=== PATIENT | female | born 2000 | race Two or more races ===

== ENCOUNTER 2025-03-12 16:23 | Emergency (ER) | payer MEDICAID, SELFPAY ==
[2025-03-12 16:24] VITALS: BMI 24.2
[2025-03-12 16:33] VITALS: BP 134/93; PULSE 108; RESP 18; TEMP 37.1; O2SAT 96
--- NOTE | 2025-03-12 16:35 | XR_ITS ---
Examination: PA lateral chest 2 views TECHNIQUE: Upright PA and lateral chest 2 views Date and time: March 12, 2025 1808 hours Comparison April 19, 2024 INDICATIONS: Coughing fever today. FINDINGS: Significant fairly diffuse left lung pneumonia Normal heart size Right lung clear IMPRESSION: Significant fairly diffuse left lung pneumonia
--- NOTE | 2025-03-12 16:35 | EDNOTE_ITS ---
Upper Respiratory Inf. RME/HPI General Chief Complaint: Flu Like Symptoms Stated Complaint: COUGH/DIFF BREATHING X 1 WEEK Time Seen by Provider: 03/12/25 16:32 Source: patient Arrival date/time: 03/12/25 16:23 24-year-old female with no known medical history presents to the emergency room with a chief complaint of coughing, fever, phlegm and difficulty breathing x 1 week Mode of arrival: ambulatory Limitations: no limitations Related Data Home Medications ?Medication ?Instructions ?Recorded ?Confirmed hydrocodone 5 mg-acetaminophen 325 1 tab PO Q6H mg tablet metronidazole 500 mg tablet 500 mg PO BID 11/13/19 (Flagyl) Previous Rx's ?Medication ?Instructions ?Recorded cyclobenzaprine 10 mg tablet 10 mg PO TID PRN muscle s pasm #20 04/20/24 tabs naproxen 500 mg tablet 500 mg PO BID PRN pain #30 t abs 04/20/24 albuterol sulfate 90 mcg/actuation 2 puff inhalation Q 6H PRN 03/12/25 aerosol inhaler (Ventolin HFA) shortness of breath or wheezing #6.7 grams amoxicillin 875 mg-potassium 1 tab PO BID 7 days #14 t abs 03/12/25 clavulanate 125 mg tablet Allergies Allergy/AdvReac Type Severity Reaction Status Date / Time No Known Allergies Allergy Verified 03/12/25 16:26 Review of Systems Review of Systems Systems Reviewed: All systems reviewed, normal except as documented Constitutional Constitutional: Reports system reviewed and no additional complaints, except as documented, Denies fatigue, Denies fever(s), Denies headache(s) and Denies weakness Eyes Eyes: Reports system reviewed and no additional complaints, except as documented, Denies blurry vision and Denies change in vision ENT Ears, Nose, Mouth, and Throat: Reports system reviewed and no additional complaints, except as documented, Denies otalgia, Denies headache(s), Denies nasal congestion, Denies throat swelling and Denies vertigo Cardiovascular Cardiovascular: Reports system reviewed and no additional complaints, except as documented, Denies chest pain, Reports dyspnea and Denies dyspnea on exertion Respiratory Respiratory: Reports system reviewed and no additional complaints, except as documented, Reports chest congestion, Reports cough, Reports dyspnea, Denies dyspnea on exertion and Reports wheezing Gastrointestinal Gastrointestinal: Reports system reviewed and no additional complaints, except as documented, Denies abdominal pain, Denies cramping, Denies nausea and Denies vomiting Genitourinary Genitourinary: Reports system reviewed and no additional complaints, except as documented Musculoskeletal Musculoskeletal: Reports system reviewed and no additional complaints, except as documented and Denies back pain Integumentary/Breasts Skin/Breast: Reports system reviewed and no additional complaints, except as documented and Denies wounds Neurologic Neurologic: Reports system reviewed and no additional complaints, except as documented, Denies confusion, Denies headache(s), Denies lack of coordination, Denies vertigo and Denies weakness Psychiatric Psychiatric: Reports system reviewed and no additional complaints, except as documented, Denies anxiety, Denies confusion, Denies depression, Denies paranoia, Denies suicidal ideation and Denies tactile hallucinations Endocrine Endocrine: Reports system reviewed and no additional complaints, except as documented and Denies fatigue Hematologic/Lymphatic Hematologic/Lymphatic: Reports system reviewed and no additional complaints, except as documented and Denies lymphadenopathy Allergic/Immunologic Allergic/Immunologic: Reports system reviewed and no additional complaints, except as documented, Denies throat swelling, Denies urticaria and Reports wheezing Past Medical History Past Medical History CARDIAC: Negative Congestive Heart Failure RESPIRATORY: Negative Chronic Obstructive Pulmonary Disease (COPD) GENITOURINARY: Negative Renal Disease ENDOCRINE: Negative Diabetes Mellitus Type 1 or Diabetes Mellitus Type 2 Family History FAMILY HISTORY: Positive Family Cardiac Disorders Social History SMOKING STATUS: Never smoker ED Exam General Limitations: Present no limitations General appearance: Present alert and in no apparent distress Head Head exam: Present atraumatic Eye Eye exam: Present normal appearance, PERRL and EOMI ENT ENT exam: Present normal exam, normal oropharynx and mucous membranes moist Neck Neck exam: Present normal inspection, full ROM and trachea midline Chest Chest inspection: Present normal inspection and symmetric chest wall rise Respiratory Respiratory exam: Present normal lung sounds bilaterally, respiratory distress and wheezes; Absent stridor, accessory muscle use or prolonged expiratory phase Expanded Respiratory Exam Location: Right: wheezes and Lower: wheezes Cardiovascular Cardiovascular exam: Present regular rate, normal rhythm, tachycardia and normal heart sounds Abdominal Exam Abdominal exam: Present soft and normal bowel sounds; Absent distention, tenderness, guarding, rebound or rigidity Extremities Exam Extremities exam: Present normal inspection and full ROM Back Exam Back exam: Present normal inspection and full ROM Neurological Exam Neurological exam: Present alert, oriented X3 and CN II-XII intact Psychiatric Psychiatric exam: Present normal affect and normal mood Skin Skin exam: Present warm, dry, intact and normal color Course Quality Measures none Orders Category Date Time Status Bedside COVID-19 Antigen Test NOW Care 03/12/25 16:35 Completed Bedside Influenza A&B Antigen Test NOW Care 03/12/25 16:35 Completed XR chest 2V Stat Exams 03/12/25 16:35 Completed Albuterol/Ipratr Rt Monica [Duoneb Rt Monica] Med 03/12/25 16:35 Discontinued 3 ml INH X1 ONE Albuterol/Ipratr Rt Monica [Duoneb Rt Monica] Med 03/12/25 17:46 Discontinued 3 ml INH X1 ONE Dexamethasone Inj [Decadron Inj] Med 03/12/25 16:35 Discontinued 10 mg PO X1 ONE Vital Signs Vital signs: Vital Signs Temperature 98.7 F 03/12/25 16:33 Pulse Rate 108 H 03/12/25 16:33 Respiratory Rate 18 03/12/25 16:33 Blood Pressure 134/93 H 03/12/25 16:33 Pulse Oximetry (%) 96 03/12/25 16:33 Oxygen Delivery Method Room Air 03/12/25 16:33 O2 saturation 96% within normal limits Upper Respiratory Infection MDM Narrative MDM Narrative:: 24-year-old female with no known medical history presents to the emergency room with a chief complaint of coughing, fever, phlegm and difficulty breathing x 1 week Patient is hemodynamically stable she is afebrile not tachypneic and her O2 saturation is 96% on room air Physical examination shows right lower lobe wheezing during auscultation. X-ray was completed and shows significant left-sided pneumonia. Antibiotics are sent to the pharmacy. The patient was reevaluated 1 hour after the first breathing treatment and she was still wheezing. A second breathing treatment was ordered. Patient was discharged and educated to follow-up with primary care provider in the next 24 to 48 hours and return to the emergency room for any evidence of worsening signs or symptoms Patient data External records reviewed:: [facility] previous records Clinical information provided by:: patient Social determinants that could affect healthcare access:: none Patient has the following chronic illnesses:: No chronic illness How is presenting disease/condition affected by chronic disease/condition?: no chronic disease Evaluation data The following diagnostics were reviewed and interpreted by me:: lab results and radiology exam(s) Lab and/or radiology exams considered but not ordered:: Labs and radiology exams considered in order Interpretation Summary: Chest [id number]: Significant fairly diffuse left lung pneumonia Normal heart size Right lung clear IMPRESSION: Significant fairly diffuse left lung pneumonia Medications / Prescriptions Medications or Prescriptions considered but not ordered:: Medication given Medication administrations:: Medication Administration History Discontinued Medications Albuterol/Ipratropium (Albuterol/Ipratropium (Duoneb) Rt Monica 3 Ml Nebu) 3 ml INH X1 ONE Stop: 03/12/25 16:36 Last Admin: 03/12/25 16:48 Dose: 3 ml Documented By: [facility] Comments: WOW NOT WORKING DUE TO [employer] DOWNT[employer] UNABLE TO SCAN Albuterol/Ipratropium (Albuterol/Ipratropium (Duoneb) Rt Monica 3 Ml Nebu) 3 ml INH X1 ONE Stop: 03/12/25 17:47 Last Admin: 03/12/25 18:13 Dose: 3 ml Documented By: SD Dexamethasone Sodium Phosphate (Dexamethasone Sod Phos Inj 10 Mg/Ml Vial) 10 mg PO X1 ONE Stop: 03/12/25 16:36 Last Admin: 03/12/25 17:02 Dose: 10 mg Documented By: EF Comments: PO Medication given Consultations Consultation(s) initiated? (list below): No Diagnosis Upper Respiratory Differential Diagnosis: upper respiratory infection, otitis media, sinusitis, viral infection, bronchitis, influenza and other (Community- acquired pneumonia) Most likely diagnosis given after review of the tests above:: Community-acquired pneumonia Admission Indicated Admission indicated?: not indicated Admission Request Was there a request for admission?: No Disposition Plan Disposition Plan: Discharge Discharge Attestation Discharge Attestation: The patient and all family members were given an opportunity to ask questions and understood the discharge instructions. Discharge instructions specifically effects, indications for sooner follow up or return to the emergency department, and the expected course of current diagnosis. Patient condition: Stable Discharge Plan Plan Patient Disposition: HOME (Self Care) Discharge Disposition comment: Stable Prescriptions/Referrals Prescriptions/Med Rec: New albuterol sulfate [Ventolin HFA] 90 mcg/actuation HFA aerosol inhaler 2 puff inhalation Q6H PRN (Reason: shortness of breath or wheezing) Qty: 6.7 0RF amoxicillin-pot clavulanate 875-125 mg tablet 1 tab PO BID 7 Days Qty: 14 0RF No Action metronidazole [Flagyl] 500 mg tablet 500 mg PO BID hydrocodone-acetaminophen 5-325 mg tablet 1 tab PO Q6H cyclobenzaprine 10 mg tablet 10 mg PO TID PRN (Reason: muscle spasm) Qty: 20 0RF naproxen 500 mg tablet 500 mg PO BID PRN (Reason: pain) Qty: 30 0RF Problem List Clinical Impression: Community acquired pneumonia Patient/Caregiver Discharge Instructions Education Materials: ED Pneumonia (Adult) Additional Instructions: Please follow-up with your primary care provider in the next 24 to 48 hours. Antibiotics are sent to your pharmacy please pick them up and take them as ind icated. For any evidence of worsening signs or symptoms return to emergency room immediately Print Language: Surinamese Stand Alone Forms: Thao Award Info., Work/School Release, Patient Portal Info Letter PA/REGIONAL TRAINING MANAGER Supervising Physician PA/REGIONAL TRAINING MANAGER Supervising Physician: Dr Coulter
[2025-03-12 16:48] VITALS: PULSE 105; RESP 20; O2SAT 99
[2025-03-12] MEDS: ALBUTEROL/IPRATROPIUM (Duoneb) RT SOL 3 ML NEBU INH ×2 (16:48→18:13)
[2025-03-12] MEDS: DEXAMETHASONE SOD PHOS INJ 10 MG/ML VIAL PO (17:02)
[2025-03-12 18:13] VITALS: PULSE 110; RESP 18; O2SAT 100
== END 2025-03-12 18:20 | disposition home or self-care (01) ==
PROVIDERS: Emergency Provider Emergency Medicine
DX: J18.9 Pneumonia, unspecified organism (principal)
CPT/HCPCS: 71046; 87400; 87811; 94640; 99283; A9270; J1100